=== PATIENT | male | born 1945 | race Caucasian/White ===

== ENCOUNTER 2018-11-17 16:09 | Emergency (ER) | payer OTHER ==
[~2018-11-17] VITALS: Ht 165.1 cm; Wt 68.4 kg
[~2018-11-17 16:09] MED LIST: AMLO-147 PO; CHLO25TA2 PO; INSU100I33 SC; INSU100V27 SQ; METF500T3 PO
[2018-11-17 16:17] VITALS: Ht 165.1 cm; Wt 68.4 kg
[2018-11-17] MEDS ORDERED: ONDANSETRON (ODT) 4 MG TAB ODT STA (17:04)
[2018-11-17] MEDS ORDERED: morphine 10 MG INJ IM ONE (17:30)
[2018-11-17 18:39] VITALS: BP 159/74; PULSE 76; RESP 16
== END 2018-11-17 18:40 | disposition home or self-care (01) ==
LOC: E/R 16:09
DX: C44.602 Unspecified malignant neoplasm of skin of right upper limb, including shoulder (principal); F17.210 Nicotine dependence, cigarettes, uncomplicated; Z79.4 Long term (current) use of insulin
CPT/HCPCS: 96372; J2270; Z7502; Z7610